=== PATIENT | male | born 1970 | race American Indian/Alaskan Native ===

== ENCOUNTER 2017-08-21 05:46 | Emergency (ER) | payer SELFPAY ==
[2017-08-21] MEDS ORDERED: CATAPRES ONE (07:00)
[2017-08-21] MEDS ORDERED: CATAPRES PO ONE ×2 (07:02→09:14)
[2017-08-21 07:57] LABS: Hematocrit 41.9 % (35.5-45.6); Hemoglobin 14.8 gm/dl (11.8-15.2); Mean Corpuscular HGB Conc 35 % (32-34); Mean Corpuscular Hemoglobin 30 pg (28-32); Mean Corpuscular Volume 84 fl (84-94); Platelet Count 193 K/mm3 (140-440); Red Blood Count 4.99 M/mm3 (3.65-5.03); Red Cell Distribution Width 12.9 % (13.2-15.2); White Blood Count 7.5 K/mm3 (4.5-11.0)
--- NOTE | 2017-08-21 08:01 | Cat Scan Report ---
FINAL REPORT PROCEDURE: CT HEAD/BRAIN WO CON TECHNIQUE: Computerized tomography of the head was performed without contrast material. HISTORY: Headache High Blood Pressure COMPARISON: No prior studies are available for comparison. FINDINGS: Skull and scalp: Normal. Paranasal sinuses: Normal. Ventricles and subarachnoid spaces: Normal. Cerebrum: No evidence of hemorrhage, acute infarction or mass . Cerebellum and brainstem: No evidence of hemorrhage, acute infarction or mass. Vasculature: Normal. Comments: None. IMPRESSION: Normal Examination
[2017-08-21 08:18] LABS: Creatine Kinase MB 4.7 ng/mL (0.0-4.0)
[2017-08-21 08:21] LABS: Alanine Aminotransferase 21 units/L (7-56); Albumin 3.8 g/dL (3.9-5); Alkaline Phosphatase 50 units/L (35-129); Anion Gap 16 mmol/L; BUN/Creatinine Ratio 10; Blood Urea Nitrogen 12 mg/dL (9-20); Calcium 9.1 mg/dL (8.4-10.2); Carbon Dioxide 24 mmol/L (22-30); Chloride 103.8 mmol/L (98-107); Creatine Kinase 151 units/L (55-170); Glucose 82 mg/dL (75-100); Sodium 140 mmol/L (137-145); Total Protein 7.5 g/dL (6.3-8.2)
[2017-08-21] MEDS ORDERED: TYLENOL PO ONE (09:14)
--- NOTE | 2017-08-21 09:19 | Emergency Department Report ---
ED Headache HPI - General Chief Complaint: High BP Stated Complaint: HBP Time Seen by Provider: 08/21/17 09:04 Source: patient - History of Present Illness Initial Comments: Patient is 47 his old male with no significant past medical history. He stated for the last week or so he started having headache, he went to a fire station, found that his blood pressure is really high. Patient denied any numbness, tingling sensation or weakness. No bowel or bladder incontinence. Patient denied any neck stiffness or fever. Patient stated that he never noted that he had blood pressure and he was never on any blood pressure medication before. Timing/Duration: 1 week Quality: moderate Head Injury Location: global Recent Head Trauma: no recent headache/trauma Allergies/Adverse Reactions: Allergies No Known Allergies Allergy (Unverified 10/18/13 11:12) ED Review of Systems ROS: Stated complaint: HBP Other details as noted in HPI Comment: All other systems reviewed and negative Constitutional: denies: chills, fever ENT: denies: ear pain, dental pain Respiratory: denies: cough, orthopnea, shortness of breath, SOB with exertion, SOB at rest, wheezing Cardiovascular: denies: chest pain, palpitations, dyspnea on exertion, orthopnea , syncope, paroxysmal nocturnal dyspnea Gastrointestinal: denies: abdominal pain, nausea, vomiting, diarrhea, constipation, hematemesis, melena, hematochezia Genitourinary: denies: urgency Skin: denies: rash, lesions, change in color, change in hair/nails Neurological: headache. denies: weakness, numbness, paresthesias, confusion, abnormal gait, vertigo ED Past Medical Hx - Past Medical History Previous Medical History?: Yes Hx Hypertension: Yes (not taking medications) - Social History Smoking Status: Never Smoker ED Physical Exam - General Limitations: No Limitations General appearance: alert, in no apparent distress - Head Head exam: Present: atraumatic, normocephalic, normal inspection - Eye Eye exam: Present: normal appearance, PERRL, EOMI Pupils: Present: normal accommodation - ENT ENT exam: Present: normal exam, normal orophraynx, mucous membranes moist - Neck Neck exam: Present: normal inspection, full ROM. Absent: tenderness, meningismus, lymphadenopathy, thyromegaly - Respiratory Respiratory exam: Present: normal lung sounds bilaterally. Absent: respiratory distress, wheezes, rales, rhonchi, stridor, chest wall tenderness, accessory muscle use, decreased breath sounds, prolonged expiratory - Cardiovascular Cardiovascular Exam: Present: regular rate, normal rhythm, normal heart sounds. Absent: bradycardia, tachycardia, irregular rhythm, systolic murmur, diastolic murmur, rubs, gallop - GI/Abdominal GI/Abdominal exam: Present: soft, normal bowel sounds. Absent: distended, tenderness, guarding, rebound, rigid, diminished bowel sounds, organomegaly, mass, bruit, pulsatile mass, hernia - Extremities Exam Extremities exam: Present: normal inspection, full ROM, normal capillary refill. Absent: tenderness, pedal edema, joint swelling, calf tenderness - Back Exam Back exam: Present: normal inspection, full ROM. Absent: tenderness, CVA tenderness (R), CVA tenderness (L), muscle spasm, paraspinal tenderness, vertebral tenderness, rash noted - Neurological Exam Neurological exam: Present: alert, oriented X3, CN II-XII intact, normal gait, reflexes normal. Absent: motor sensory deficit - Skin Skin exam: Present: warm, intact, normal color ED Course Vital Signs 08/21/17 08/21/17 08/21/17 06:48 07:04 07:50 Temperature 98.6 F Pulse Rate 87 87 79 Respiratory 20 Rate Blood Pressure 194/108 194/108 Blood Pressure 160/105 [Right] O2 Sat by Pulse 98 Oximetry ED Medical Decision Making - Lab Data Result diagrams: 08/21/17 07:44 08/21/17 07:44 - EKG Data -: EKG Interpreted by Ga EKG shows normal: sinus rhythm - EKG Data Interpretation: no acute changes - Radiology Data Radiology results: report reviewed Referring Physician: AZEB SMITH Patient Name: JULES FISHER Date of : 1970 Sex: Male Report Date: 2017-08-21 Report Status: [place] [address] Cat Scan Report Signed Patient: JULES FISHER JR MR#: [id number] : 1970 Acct:[id number] Age/Sex: 47 / M ADM Date: 08/21/17 Loc: ED Attending Dr: Ordering Physician: AZEB SMITH Date of Service: 08/21/17 Procedure(s): CT head/brain wo con Accession Number(s): [id number] cc: AZEB SMITH FINAL REPORT PROCEDURE: CT HEAD/BRAIN WO CON TECHNIQUE: Computerized tomography of the head was performed without contrast material. HISTORY: Headache High Blood Pressure COMPARISON: No prior studies are available for comparison. FINDINGS: Skull and scalp: Normal. Paranasal sinuses: Normal. Ventricles and subarachnoid spaces: Normal. Cerebrum: No evidence of hemorrhage, acute infarction or mass . Cerebellum and brainstem: No evidence of hemorrhage, acute infarction or mass. Vasculature: Normal. Comments: None. IMPRESSION: Normal Examination Transcribed By: CO Dictated By: DELLA REBOLLEDO MD Electronically Authenticated By: DELLA REBOLLEDO MD Signed Date/Time: 08/21/17357 DD/ 7 TD/TT: 08/21/17357 Critical care attestation.: If time is entered above; I have spent that time in minutes in the direct care of this critically ill patient, excluding procedure time. ED Disposition Clinical Impression: Headache, Malignant hypertension Disposition: DC-01 TO HOME OR SELFCARE Is pt being admited?: No Condition: Stable Instructions: Hypertension (ED) Additional Instructions: Please fill your prescription for high blood pressure. Please return to the ER if her symptoms is not getting better or you develop new symptoms. He saw her primary care physician in the next 2-3 days. Referrals: PRIMARY CAREMD [Primary Care Provider] - 3-5 Days
[2017-08-21 10:23] VITALS: BP 164/108
== END 2017-08-21 10:42 | disposition home or self-care (01) ==
LOC: ED 05:46
DX: I10 Essential (primary) hypertension (principal); R51 Headache
CPT/HCPCS: 36415; 70450; 80053; 82550; 82553; 84484; 85027; 93005; 93010; 99284

== ENCOUNTER 2017-08-24 02:35 | Emergency (ER) | payer SELFPAY | END 2017-08-24 02:59 | disposition left against medical advice (07) | LOC: ED 02:35 | DX: Z53.21 Procedure and treatment not carried out due to patient leaving prior to being seen by health care provider (principal) ==

== ENCOUNTER 2018-05-02 20:10 | Emergency (ER) | payer SELFPAY ==
[2018-05-02 20:53] VITALS: BP 183/115
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
[2018-05-02] MEDS ORDERED: BOOSTRIX IM ONE (23:08)
[2018-05-02] MEDS ORDERED: AUGMENTIN 875 MG PO ONE (23:08)
== END 2018-05-02 23:40 | disposition home or self-care (01) ==
LOC: ED 20:10
DX: H10.31 Unspecified acute conjunctivitis, right eye (principal); I10 Essential (primary) hypertension
CPT/HCPCS: 70486; 90471; 90715; 99283

== ENCOUNTER 2019-03-14 10:11 | Inpatient (IN) | payer SELFPAY ==
[2019-03-14] MEDS ORDERED: APRESOLINE IV ONE (10:46)
--- NOTE | 2019-03-14 10:50 | XRay Report ---
PA AND LATERAL CXR HISTORY: Dyspnea COMPARISON: None. FINDINGS: Cardiomediastinal silhouette: Normal cardiac size. Normal mediastinal contours. Lungs: Normal expansion. Mild right perihilar patchy opacities on the frontal view and right hilar f ullness on the lateral view. The lungs are otherwise clear. No pleural effusions. No pneumothorax. Pulmonary vascularity: Normal. Support hardware: None. Additional findings: None. IMPRESSION: 1. Suspect mild right perihilar pneumonia without consolidation. Signer Name: Luis Armando Aguilera MD Signed: 03/14/2019 10:46 AM Workstation Name: [id number]
--- NOTE | 2019-03-14 11:11 | Emergency Department Report ---
HPI - General Chief Complaint: Dyspnea/Respdistress Time Seen by Provider: 03/14/19 10:37 - HPI HPI: 48-year-old -[place] male presents to the emergency department from home with a complaint of a 2-3 day history of some intermittent shortness of breath and chest pain. Then, this morning, while the patient was trying to have a bowel movement he became very diaphoretic and had some nausea and vomiting. He has not taken anything for his symptoms prior to presentation. He denies any tobacco use. He does admit to some occasional marijuana use. He does have a history of hypertension and admits to medication noncompliance due to financial issues. No recent travel or sick contacts at home. He does not have a primary care physician. ED Past Medical Hx - Past Medical History Previous Medical History?: Yes Hx Hypertension: Yes (not taking medications) - Surgical History Past Surgical History?: No - Social History Smoking Status: Never Smoker Substance Use Type: Alcohol - Medications Home Medications: Home Medications Medication Instructions Recorded Confirmed Last Taken Type No Known Home Medications [No 03/14/19 03/14/19 Unknown History Reported Home Medications] ED Review of Systems ROS: Stated complaint: SHORTNESS OF BREATH Other details as noted in HPI Comment: All other systems reviewed and negative Constitutional: diaphoresis. denies: chills, fever Eyes: denies: eye pain, vision change ENT: denies: ear pain, throat pain Respiratory: shortness of breath. denies: cough Cardiovascular: chest pain. denies: palpitations Gastrointestinal: nausea, vomiting Genitourinary: denies: dysuria, discharge Musculoskeletal: denies: back pain, arthralgia Skin: denies: rash, lesions Neurological: denies: headache, weakness Physical Exam - Physical Exam Vital Signs: Vital Signs 03/14/19 03/14/19 03/14/19 10:19 10:56 10:57 Temperature 98.2 F 98.6 F Pulse Rate 83 84 Respiratory 18 26 H 23 Rate Blood Pressure 196/128 Blood Pressure 194/121 [Left] O2 Sat by Pulse 95 98 98 Oximetry Physical Exam: GENERAL: The patient is well-developed well-nourished. HENT: Normocephalic. Atraumatic. Patient has moist mucous membranes. EYES: Extraocular motions are intact. NECK: Supple. Trachea is midline. CHEST/LUNGS: Clear to auscultation. There is no respiratory distress noted. HEART/CARDIOVASCULAR: Regular. There is no tachycardia. There is no murmur. ABDOMEN: Abdomen is soft, nontender. Patient has normal bowel sounds. There is no abdominal distention. SKIN: Skin is warm and dry. NEURO: The patient is awake, alert, and oriented. The patient is cooperative. The patient has no focal neurologic deficits. The patient has normal speech. MUSCULOSKELETAL: There is no tenderness or deformity. There is no limitation range of motion. There is no evidence of acute injury. ED Course Vital Signs 03/14/19 03/14/19 03/14/19 10:19 10:56 10:57 Temperature 98.2 F 98.6 F Pulse Rate 83 84 Respiratory 18 26 H 23 Rate Blood Pressure 196/128 Blood Pressure 194/121 [Left] O2 Sat by Pulse 95 98 98 Oximetry - Consultations Consultation #1: 03/14/19 13:31 As soon as I got the EKG, I spoke with the gauger chief delivery on-call, Dr. Denton, as the EKG showed some ST elevations, ST depressions and deep T-wave inversions. 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 They are happy to consult on the patient. ED Medical Decision Making - Lab Data Result diagrams: 03/14/19 11:04 03/14/19 11:04 - EKG Data -: EKG Interpreted by Me EKG shows normal: sinus rhythm, axis, intervals, QRS complexes (LVH), ST-T waves (inverted T waves to the inferior and lateral leads, there are some ST elevations to the septal leads and some ST depressions to the inferior and lateral leads) Rate: normal - EKG Data When compared to previous EKG there are: previous EKG unavailable Interpretation: other (sinus rhythm, 81 bpm, normal axis, LVH, there are some ST elevations to the septal leads and ST depressions to the inferior and lateral leads, T-wave inversions to the inferior and lateral leads. Discussed with cardiology and not a STEMI) - Radiology Data Radiology results: report reviewed PA AND LATERAL CXR HISTORY: Dyspnea COMPARISON: None. FINDINGS: Cardiomediastinal silhouette: Normal cardiac size. Normal mediastinal contours. Lungs: Normal expansion. Mild right perihilar patchy opacities on the frontal view and right hilar fullness on the lateral view. The lungs are otherwise clear. No pleural effusions. No pneumothorax. Pulmonary vascularity: Normal. Support hardware: None. Additional findings: None. IMPRESSION: 1. Suspect mild right perihilar pneumonia without consolidation. Signer Name: Luis Armando Aguilera MD Signed: 03/14/2019 10:46 AM - Medical Decision Making This patient presents to the emergency department with complaint of intermittent chest pain and shortness of breath and more recently some nausea and vomiting. His EKG was concerning as it showed some ST elevation to the anterior leads with ST depressions in the inferior lateral as well as some deep T-wave inversions. It appeared most consistent with LVH and repolarization abnormalities, but given the presentation was discussed with interventional cardiology who agrees that it does not require a code STEMI. Patient's labs have been mostly unremarkable including negative troponin and negative d-dimer. However the patient did have an elevated BNP of about 1500. The chest x-ray was read by radiology is concerned for a mild right perihilar infiltrate. For this reason the patient was placed on antibiotics and blood cultures have been sent. He does not have a fever, leukocytosis or cough but he will be empirically treated. Cardiology has been contacted and consulted. The patient will be admitted to the hospital for further evaluation of his hypertensive issues, intermittent chest pains and abnormal EKG. - Differential Diagnosis IA, PE, CHF, hypertensive emergency, pneumonia Critical Care Time: Yes Critical care time in (mins) excluding proc time.: 35 Critical care attestation.: If time is entered above; I have spent that time in minutes in the direct care of this critically ill patient, excluding procedure time. Critical care time was spent on this patient during his initial evaluation, multiple re- evaluations, ordering and interpretation of labs and imaging, interpretation of EKG and discussion with cardiology, ordering of multiple antihypertensive medications for his hypertensive urgency. Critical Care Time: 35 minutes ED Disposition Clinical Impression: Uncontrolled hypertension, Elevated troponin, Acute chest pain, Hypertensive urgency, Abnormal ECG Disposition: OP ADMIT IP TO THIS HOSP Is pt being admited?: Yes Condition: Fair Instructions: Hypertension (ED), Chest Pain (ED) Referrals: PRIMARY CARE, [Referring] - 3-5 Days Time of Disposition: 13:37
[2019-03-14 11:13] LABS: Basophils % (Auto) 0.5 % (0.0-1.8); Eosinophils # (Auto) 0.1 K/mm3 (0.0-0.4); Eosinophils % (Auto) 1.7 % (0.0-4.3); Hematocrit 40.9 % (35.5-45.6); Hemoglobin 14.4 gm/dl (11.8-15.2); Lymphocytes # (Auto) 1.1 K/mm3 (1.2-5.4); Lymphocytes % (Auto) 14.1 % (13.4-35.0); Mean Corpuscular HGB Conc 35 % (32-34); Mean Corpuscular Volume 82 fl (84-94); Monocytes # (Auto) 0.6 K/mm3 (0.0-0.8); Monocytes % (Auto) 8.2 % (0.0-7.3); Platelet Count 222 K/mm3 (140-440); Red Blood Count 4.97 M/mm3 (3.65-5.03); Red Cell Distribution Width 13.4 % (13.2-15.2)
[2019-03-14] MEDS ORDERED: BABY ASPIRIN PO ONE (11:19)
[2019-03-14 11:41] LABS: BUN/Creatinine Ratio 8; Blood Urea Nitrogen 9 mg/dL (9-20); Calcium 9.3 mg/dL (8.4-10.2)
[2019-03-14 11:42] LABS: Hemolysis Index 4
[2019-03-14] MEDS ORDERED: NORMODYNE IV ONE (11:45)
[2019-03-14] MEDS ORDERED: ROCEPHIN/NS 1 GM/50 ML 1 GM/50 ML BAG IV ONE (11:45)
[2019-03-14] MEDS ORDERED: LASIX IV ONE (12:11)
[2019-03-14] MEDS ORDERED: NORVASC PO ONE ×2 (12:12→12:15)
[2019-03-14] MEDS ORDERED: NORVASC ONE (12:21)
[2019-03-14] MEDS ORDERED: ZITHROMAX 500 MG in NACL 0.9% 250ML 250 ML IV ONE (12:30)
--- NOTE | 2019-03-14 12:58 | Consultation ---
History of Present Illness Consult date: 03/14/19 Requesting physician: JAMIE MCNEIL Consult reason: chest pain, shortness of breath, other (abnormal ecg) History of present illness: The pt is a 48-year-old -[place] male with past medical history of HTN and ETOH use (drinks 48oz beer every other day). He does not have a PCP, he admits to medication noncompliance due to financial issues. He presented with c/o dyspnea on exertion and intermittent chest pain for the past 3 days. Pt describes his chest pain as a nonradiating midsternal tightness which usually o ccurs after he becomes severely SOB. Additionally, pt was trying to have a bowel movement this morning when he became very diaphoretic and had some nausea and vomiting and thus decided to seek medical attention. Pt denies any orthopnea, cough, fever, chills, swelling, palpitations, dizziness or syncope. Pt denies any known prior cardiac issues. He denies any prior cardiac w/u. Initial ECG is noted to be markedly abnormal with LVH and repolarization abnormalities. Past History Past Medical History: hypertension Social history: alcohol abuse. denies: smoking, prescription drug abuse, IV drug use Medications and Allergies Allergies Allergy/AdvReac Type Severity Reaction Status Date / Time No Known Allergies Allergy Verified 03/14/19 10: Home Medications Medication Instructions Recorded Confirmed Last Taken Type No Known Home Medications [No 03/14/19 03/14/19 Unknown History Reported Home Medications] Active Meds: Active Medications Azithromycin 500 mg/ Sodium (Chloride) 250 mls @ 250 mls/hr IV ONCE ONE; Protocol Stop: 03/14/19 13:29 Last Admin: 03/14/19 12:24 Dose: 250 mls/hr Documented by: Review of Systems Constitutional: no weight loss, no weight gain, no fever, no chills Ears, nose, mouth and throat: no ear pain, no nose pain, no sinus pressure, no sinus pain Cardiovascular: chest pain, shortness of breath, dyspnea on exertion, no orthopnea, no palpitations, no rapid/irregular heart beat, no edema, no syncope, no lightheadedness, no paroxysmal nocturnal dyspnea Respiratory: shortness of breath, dyspnea on exertion, no cough, no congestion, no wheezing, no pain on inspiration Gastrointestinal: nausea, vomiting, no abdominal pain, no diarrhea, no constipation, no change in bowel habits Genitourinary Male: no dysuria, no hematuria, no flank pain, no discharge, no urinary frequency, no urinary hesitancy Musculoskeletal: no neck stiffness, no neck pain, no shooting arm pain, no arm numbness/tingling, no low back pain, no shooting leg pain Integumentary: no rash, no pruritis, no redness, no sores, no wounds Neurological: no head injury, no paralysis, no weakness, no parathesias, no numbness, no tingling, no seizures, no syncope Psychiatric: no anxiety Endocrine: no cold intolerance, no heat intolerance Hematologic/Lymphatic: no easy bruising, no easy bleeding Allergic/Immunologic: no urticaria, no wheezing Physical Examination Vital Signs Temp Pulse Resp BP Pulse Ox 98.2 F 83 18 196/128 95 03/14/19 10:19 03/14/19 10:19 03/14/19 10:19 03/14/19 10:03/14/19 10:19 General appearance: no acute distress HEENT: Positive: PERRL Neck: Positive: neck supple, trachea midline Cardiac: Positive: Reg Rate and Rhythm, S1/S2, S4 Lungs: Positive: Decreased Breath Sounds Neuro: Positive: Grossly Intact Abdomen: Negative: Tender Skin: Negative: Rash, Wound Musculoskeletal: No Pain Extremities: Absent: edema Results 03/14/19 11:04 03/14/19 11:04 CBC 03/14/19 Range/Units 11:04 WBC 7.7 (4.5-11.0) K/mm3 RBC 4.97 (3.65-5.03) M/mm3 Hgb 14.4 (11.8-15.2) gm/dl Hct 40.9 (35.5-45.6) % Plt Count 222 (140-440) K/mm3 Lymph # 1.1 L (1.2-5.4) K/mm3 [place] # 0.6 (0.0-0.8) K/mm3 Eos # 0.1 (0.0-0.4) K/mm3 Baso # 0.0 (0.0-0.1) K/mm3 Comprehensive Metabolic Panel 03/14/19 Range/Units 11:04 Sodium 141 (137-145) mmol/L Potassium 4.7 (3.6-5.0) mmol/L Chloride 104.8 (98-107) mmol/L Carbon Dioxide 29 (22-30) mmol/L BUN 9 (9-20) mg/dL Creatinine 1.2 (0.8-1.5) mg/dL Glucose 102 H (75-100) mg/dL Calcium 9.3 (8.4-10.2) mg/dL - Imaging and Cardiology Echo: pending EKG: report reviewed, image reviewed EKG interpretations - Telemetry EKG Rhythm: Sinus Rhythm - EKG Sinus rhythms and dysrhythmias: sinus rhythm Chamber hypertrophy or enlargement: left ventricular hypertro Repolarization changes or abnormalities: repolarization abn secondary to ventricular hypertrophy Assessment and Plan Optimize BPs. Cont IV diuretics. Initial troponin very minimally elevated, likely secondary to HTN. Cont to trend SHAW and repeat ECG in AM. Obtain echo. Further recs to follow per hospital course. The patient has been seen in conjunction with Dr. Aguiar who agrees with the assessment and plan of care. - Patient Problems (1) Uncontrolled hypertension Current Visit: Yes Status: Acute (2) Chest pain Current Visit: Yes Status: Acute (3) Dyspnea Current Visit: Yes Status: Acute (4) Acute heart failure Current Visit: Yes Status: Suspected (5) Abnormal ECG Current Visit: Yes Status: Acute (6) Alcohol use Current Visit: Yes Status: Chronic
[2019-03-14] MEDS ORDERED: COREG PO SCH ×2 (13:23→22:00)
[2019-03-14] MEDS: COREG PO SCH ×2 (14:21→22:36)
[2019-03-14] MEDS ORDERED: COREG ONE (14:23)
--- NOTE | 2019-03-14 14:50 | History and Physical Report ---
History of Present Illness Chief complaint: Im short of breath History of present illness: 48 YO Male with HTN, Medication noncompliance for the past 3 months presents to ED for evaluation. Pt states that he has experienced shortness of breath over the past 3 days with persistent symptoms over the same time frame. Pt acknowledges decreased exercise tolerance, diaphoresis, as well as nausea and an episode of vomiting. Pt transported to [facility] via private vehicle. Pt seen and evaluated in ED and found to have blood pressure of 212/128, and elevated BNP, as well as symptoms consistent with CHF Decompensation. Cardiology consulted in ED. Pt admitted to telemetry, and initiated on CHF protocol. No prior admission for review. No medication listed at time of admission for reconciliation. Pt denies fever, chills, CP, Palpitations, Trauma, Skin Rash, BRBPR, Productive cough, unilateral leg swelling, calf pain, prolonged travel/immobility, Individual/family history of DVT/PE/Bleeding/Blood Clotting Disorders. Past History Past Medical History: hypertension Past Surgical History: No surgical history, Other (reviewed) Social history: alcohol abuse. denies: smoking, prescription drug abuse, IV drug use Family history: hypertension Medications and Allergies Allergies Allergy/AdvReac Type Severity Reaction Status Date / Time No Known Allergies Allergy Verified 03/14/19 10:19 Home Medications Medication Instructions Recorded Confirmed Last Taken Type No Known Home Medications [No 03/14/19 03/14/19 Unknown History Reported Home Medications] Active Meds: Active Medications Carvedilol (Coreg) 12.5 mg PO BID [facility] Last Admin: 03/14/19 14:21 Dose: 12.5 mg Documented by: Furosemide (Lasix) 40 mg IV DAILY@0600 [facility] Losartan Potassium (Cozaar) 25 mg PO DAILY [facility] Review of Systems Constitutional: no weight loss, no weight gain, no fever, no chills Ears, nose, mouth and throat: no ear pain, no ear discharge, no tinnitis, no decreased hearing, no nose pain Cardiovascular: shortness of breath, dyspnea on exertion, decreased exercise tolerance, no chest pain, no palpitations, no rapid/irregular heart beat Respiratory: no cough, no cough with sputum, no excessive sputum Gastrointestinal: nausea, vomiting, no diarrhea, no constipation, no change in bowel habits Genitourinary Male: no hematuria, no flank pain, no discharge, no urinary frequency, no urinary hesitancy Rectal: no pain, no incontinence, no bleeding Musculoskeletal: no neck stiffness, no neck pain, no shooting arm pain, no arm numbness/tingling, no low back pain, no shooting leg pain Integumentary: no rash, no pruritis, no redness, no wounds Neurological: no transient paralysis, no paralysis, no weakness, no parathesias, no numbness, no tingling, no lack of coordination Psychiatric: no anxiety, no change in sleep habits, no sleep disturbances, no insomnia, no change in appetite, no change in libido Endocrine: no cold intolerance, no heat intolerance, no polyphagia, no excessive thirst, no polydipsia, no polyuria, no excessive sweating, no flushing Hematologic/Lymphatic: no easy bruising, no easy bleeding, no lymphedema Allergic/Immunologic: no urticaria, no allergic rhinitis, no wheezing, no persistent infections Exam - Constitutional Vitals: Temp Pulse Resp BP Pulse Ox 98.6 F 99 H 15 187/113 99 03/14/19 10:56 03/14/19 14:21 03/14/19 14:00 03/14/19 14:00 03/14/19 14:00 General appearance: Present: mild distress - EENT Eyes: Present: PERRL ENT: hearing intact, clear oral mucosa - Neck Neck: Present: supple, normal ROM - Respiratory Respiratory effort: normal Respiratory: bilateral: CTA - Cardiovascular Heart Sounds: Present: S1 & S2. Absent: rub, click - Extremities Extremities: pulses symmetrical, No edema Peripheral Pulses: within normal limits - Abdominal General gastrointestinal: Present: soft, non-tender, non-distended, normal bowel sounds Male genitourinary: Present: normal - Integumentary Integumentary: Present: clear, warm, dry - Musculoskeletal Musculoskeletal: gait normal, strength equal bilaterally - Psychiatric Psychiatric: appropriate mood/affect, intact judgment & insight - Neurologic Neurologic: CNII-XII intact, moves all extremities Results - Labs CBC & Chem 7: 03/14/19 11:04 03/14/19 11:04 Labs: Abnormal lab results 03/14/19 03/14/19 03/14/19 Range/Units 11:04 11:04 11:04 MCV 82 L (84-94) fl MCHC 35 H (32-34) % [place] % (Auto) 8.2 H (0.0-7.3) % Lymph # 1.1 L (1.2-5.4) K/mm3 Seg Neutrophils % 75.5 H (40.0-70.0) % Glucose 102 H (75-100) mg/dL NT-Pro-B Natriuret Pep 1564 H (0-450) pg/mL Assessment and Plan - Patient Problems (1) CHF (congestive heart failure) Current Visit: Yes Status: Acute Qualifiers: Heart failure type: diastolic Heart failure chronicity: acute Qualified Code(s): I50.31 - Acute diastolic (congestive) heart failure Plan to address problem: Admit to telemetry, Echo, Cardiology consulted in ED, thyroid panel, magnesium level, supplemental oxygen, afterload reduction, blood pressure control, diuresis. (2) Hypertensive urgency, malignant Current Visit: Yes Status: Acute Plan to address problem: monitor BP q shift, IV hydralazine prn, (3) Noncompliance Current Visit: Yes Status: Acute Plan to address problem: Pt counseled, Pt acknowledges understanding risks of worsening health/ if continued medication noncompliance. (4) Advance care planning Current Visit: Yes Status: Acute Plan to address problem: Discussed medication noncompliance, meal planning, +25min (5) DVT prophylaxis Current Visit: Yes Status: Acute Plan to address problem: SCD to BLE while in bed, pt ambulatory
[2019-03-14 18:29] LABS: Amphetamine Screen,Urine PRESUMPTIVE NEGATIVE; Benzodiazepines Screen,Urine PRESUMPTIVE NEGATIVE; Cocaine Screen,Urine PRESUMPTIVE NEGATIVE; Methadone Screen,Urine PRESUMPTIVE NEGATIVE; Opiate Screen,Urine PRESUMPTIVE NEGATIVE
[2019-03-14 18:41] LABS: Cannabinoid Screen,Urine PRESUMPTIVE POSITIVE
[2019-03-14] MEDS ORDERED: PROVENTIL IH PRN (20:58)
[2019-03-14] MEDS ORDERED: ZOFRAN IV PRN (20:58)
[2019-03-14] MEDS ORDERED: SODIUM CHLORIDE FLUSH SYRINGE 10 ML IV PRN (20:58)
[2019-03-14] MEDS: SODIUM CHLORIDE FLUSH SYRINGE 10 ML IV SCH (22:37)
[2019-03-15 04:57] LABS: BUN/Creatinine Ratio 12; Blood Urea Nitrogen 14 mg/dL (9-20); HDL Cholesterol 57 mg/dL (40-59); Hemolysis Index 15; LDL Cholesterol,Direct 93 mg/dL (50-130)
[2019-03-15] MEDS: APRESOLINE IV PRN ×3 (05:41→20:23)
[2019-03-15] MEDS: LASIX IV SCH (05:41)
[2019-03-15] MEDS: COZAAR PO SCH (10:34)
[2019-03-15] MEDS: COREG PO SCH ×2 (10:34→22:58)
[2019-03-15] MEDS: NORVASC PO SCH (10:35)
[2019-03-15] MEDS: SODIUM CHLORIDE FLUSH SYRINGE 10 ML IV SCH ×2 (10:35→22:59)
[2019-03-15] MEDS: TYLENOL PO PRN ×2 (10:38→20:21)
--- NOTE | 2019-03-15 15:23 | Progress Note ---
Assessment and Plan Echo reviewed - EF 45-50%, mod LVH, impaired relaxation, trivial pericardial effusion. Currently stable cardiac status. Pt appears clinically improved and reports resolution of his symptoms today. Troponins were noted to be minimally elevated, suspect secondary to uncontrolled HTN. Pt may discharge home from cardiology standpoint. Will plan for stress test as OP as pt is requesting to discharge home today. Recommend follow up in our office with Dr. Aguiar within 1-2 weeks of hospital discharge ([phone]). The patient has been seen in conjunction with Dr. Aguiar who agrees with the assessment and plan of care. - Patient Problems (1) Uncontrolled hypertension Current Visit: Yes Status: Acute (2) Chest pain Current Visit: Yes Status: Resolved (3) Dyspnea Current Visit: Yes Status: Acute (4) Abnormal ECG Current Visit: Yes Status: Acute (5) Elevated troponin Current Visit: Yes Status: Acute (6) Alcohol use Current Visit: Yes Status: Chronic Subjective Date of service: 03/15/19 Principal diagnosis: HTN Interval history: pt resting in bed, no current complaints. in SR on tele with no acute events overnight. Objective Last Vital Signs Temp 98.0 F 03/15/19 04:29 Pulse 85 03/15/19 10:35 Resp 18 03/15/19 04:29 BP 158/112 03/15/19 10:35 Pulse Ox 100 03/15/19 07:42 - Physical Examination General: No Apparent Distress HEENT: Positive: PERRL Neck: Positive: neck supple, trachea midline Cardiac: Positive: Reg Rate and Rhythm, S1/S2 Lungs: Positive: Decreased Breath Sounds Neuro: Positive: Grossly Intact Abdomen: Negative: Tender Skin: Negative: Rash, Wound Musculoskeletal: No Pain Extremities: Absent: edema - Labs and Meds Lipids 03/15/19 Range/Units 03:48 Triglycerides 131 (2-149) mg/dL Cholesterol 160 (50-199) mg/dL HDL Cholesterol 57 (40-59) mg/dL Cholesterol/HDL Ratio 2.80 % Comprehensive Metabolic Panel 03/15/19 Range/Units 03:48 Sodium 139 (137-145) mmol/L Potassium 3.8 (3.6-5.0) mmol/L Chloride 101.8 (98-107) mmol/L Carbon Dioxide 26 (22-30) mmol/L BUN 14 (9-20) mg/dL Creatinine 1.2 (0.8-1.5) mg/dL Glucose 98 (75-100) mg/dL Calcium 9.0 (8.4-10.2) mg/dL - Imaging and Cardiology EKG: report reviewed, image reviewed Echo: pending - EKG Sinus rhythms and dysrhythmias: sinus rhythm Chamber hypertrophy or enlargement: left ventricular hypertro Repolarization changes or abnormalities: repolarization abn secondary to ventricular hypertrophy
--- NOTE | 2019-03-15 15:27 | Progress Note ---
Assessment and Plan (1) CHF (congestive heart failure) with systolic and diastolic Cardiology consulted in ED, thyroid panel, magnesium level, supplemental oxygen, afterload reduction, blood pressure control, diuresis. (2) Hypertensive urgency, malignant monitor BP q shift, adjust oral meds, IV hydralazine prn, (3) Noncompliance Pt counseled, Pt acknowledges understanding risks of worsening health/ if continued medication noncompliance. (4) Chest pain with elevated trop - NSTEMI type 2 likely from uncontrolled BP and CHF cardiology following, plan for stress test tomorrow (5) DVT prophylaxis SCD to BLE while in bed, pt ambulatory Brief History: The pt is a 48-year-old -[place] male with past medical history of HTN and ETOH use (drinks 48oz beer every other day), anddhe oes not have a PCP, he admits to medication noncompliance due to financial issues presented with c/o dyspnea on exertion and intermittent chest pain for the past 3 days. Initial ECG is noted to be markedly abnormal with LVH and repolarization abnormalities. He he was admitted for further ablation and management. His blood pressure on admission was 196 / 128 Hospitalist Physical exam: GENERAL: well-developed and well-nourished AAM lying on bed appeared to be in no discomfort. HEENT: Normocephalic. Atraumatic. No conjunctival congestion or icterus. Patient has moist mucous membranes. NECK: Supple. Trachea midline. CHEST/LUNGS: Clear to auscultated bilaterally, breathing nonlabored. No wheezes crackles or rhonchi. HEART/CARDIOVASCULAR: Regular in rate and rhythm. S1 and S2 positive. ABDOMEN: Abdomen is soft, nontender. Patient has normal bowel sounds. SKIN: There is no rash. Warm and dry. NEURO: No focal motor deficit. Follows command. MUSCULOSKELETAL: No joint effusion or tenderness. EXTRIMITY: No edema, no cyanosis or clubbing. PSYCH: Cooperative. Subjective Date of service: 03/15/19 Principal diagnosis: HTN Interval history: Patient seen and examined. Medical records and medication list reviewed. No acute event overnight noted by the RN. Patient denies any chest pain or difficulty breathing. Patient is tolerating diet. Discussed plan of care at bedside with patient. Objective - Constitutional Vitals: Vital Signs - 12hr 03/15/19 03/15/19 03/15/19 04:29 05:41 07:00 Temperature 98.0 F Pulse Rate 81 90 90 Respiratory 18 Rate Blood Pressure 161/100 161/100 O2 Sat by Pulse 96 Oximetry 03/15/19 03/15/19 03/15/19 07:42 10:34 10:35 Temperature Pulse Rate 85 85 Respiratory Rate Blood Pressure 158/112 158/112 O2 Sat by Pulse 100 Oximetry - Labs CBC & Chem 7: 03/14/19 11:04 03/15/19 03:48 Labs: Abnormal lab results 03/15/19 Range/Units 03:48 Troponin T 0.062 H D (0.00-0.029) ng/mL
[2019-03-15] MEDS ORDERED: NORCO 5/325 PO PRN (21:22)
[2019-03-16] MEDS: LASIX IV SCH (06:32)
[2019-03-16] MEDS: SODIUM CHLORIDE FLUSH SYRINGE 10 ML IV SCH (10:30)
[2019-03-16] MEDS: COZAAR PO SCH (10:30)
[2019-03-16] MEDS: NORVASC PO SCH (10:30)
[2019-03-16] MEDS: COREG PO SCH (10:30)
--- NOTE | 2019-03-16 11:14 | Progress Note ---
Assessment and Plan Echo reviewed - EF 45-50%, mod LVH, impaired relaxation, trivial pericardial effusion. Currently stable cardiac status. Pt may discharge home from cardiology standpoint. Will plan for stress test as OP. Recommend follow up in our office with Dr. Aguiar within 1-2 weeks of hospital discharge ([phone]). The patient has been seen in conjunction with Dr. Aguiar who agrees with the assessment and plan of care. - Patient Problems (1) Uncontrolled hypertension Current Visit: Yes Status: Acute (2) Chest pain Current Visit: Yes Status: Resolved (3) Dyspnea Current Visit: Yes Status: Acute (4) Abnormal ECG Current Visit: Yes Status: Acute (5) Elevated troponin Current Visit: Yes Status: Acute (6) Alcohol use Current Visit: Yes Status: Chronic Subjective Date of service: 03/16/19 Principal diagnosis: HTN Interval history: pt resting in bed, no current complaints. in SR on tele with no acute events overnight. BPs improved. Objective Last Vital Signs Temp 98.2 F 03/16/19 08:13 Pulse 80 03/16/19 03:51 Resp 18 03/16/19 08:13 BP 146/98 03/16/19 08:13 Pulse Ox 94 03/16/19 03:51 - Physical Examination General: No Apparent Distress HEENT: Positive: PERRL Neck: Positive: neck supple, trachea midline Cardiac: Positive: Reg Rate and Rhythm, S1/S2 Lungs: Positive: Decreased Breath Sounds Neuro: Positive: Grossly Intact Abdomen: Negative: Tender Skin: Negative: Rash, Wound Musculoskeletal: No Pain Extremities: Absent: edema - Imaging and Cardiology EKG: report reviewed, image reviewed Echo: report reviewed ( EF 45-50%, mod LVH, impaired relaxation, trivial pericardial effusion. ) - Telemetry EKG Rhythm: Sinus Rhythm - EKG Sinus rhythms and dysrhythmias: sinus rhythm Chamber hypertrophy or enlargement: left ventricular hypertro Repolarization changes or abnormalities: repolarization abn secondary to ventricular hypertrophy
[2019-03-16 12:30] VITALS: BP 150/89
--- NOTE | 2019-03-16 12:56 | Discharge Summary ---
Providers - Providers Date of Admission: 03/14/19 20:58 Date of discharge: 03/16/19 Attending physician: JAMSHID PENNY 03/14/19 11:46 Consult to Cardiology [CONS] Routine Consulting Provider: DAVY BRAVO Reason For Exam: Chest pain, abnormal ECG [facility] Condition: Fair Pertinent studies: CXR 2d echo Hospital course: Brief History: The pt is a 48-year-old -[place] male with past medical history of HTN and ETOH use (drinks 48oz beer every other day), anddhe oes not have a PCP, he admits to medication noncompliance due to financial issues presented with c/o dyspnea on exertion and intermittent chest pain for the past 3 days. Initial ECG is noted to be markedly abnormal with LVH and repolarization abnormalities. He was admitted for further ablation and management. His blood pressure on admission was 196 / 128. Discharge diagnosis and management: (1) CHF (congestive heart failure) with systolic and diastolic dysfunction - Placed on iv diuresis, monitored ins/os, daily wt, consulted cardiology - Echo reviewed - EF 45-50%, mod LVH, impaired relaxation, trivial pericardial effusion. Per cardiology: Currently stable cardiac status. Pt may discharge home from cardiology standpoint. Will plan for stress test as OP. Recommend follow up with Dr. Aguiar within 1-2 weeks of hospital discharge ([phone]). (2) Hypertensive urgency, malignant monitored BP q shift, adjust oral meds, IV hydralazine prn, (3) Noncompliance Pt counseled, Pt acknowledges understanding risks of worsening health/ if continued medication noncompliance. (4) Chest pain with elevated troponin likely from uncontrolled BP and CHF, plan for stress test outpt (5) DVT prophylaxis SCD to BLE while in bed, pt ambulatory Hospitalist Physical exam: GENERAL: well-developed and well-nourished AAM lying on bed appeared to be in no discomfort. HEENT: Normocephalic. Atraumatic. No conjunctival congestion or icterus. Patient has moist mucous membranes. NECK: Supple. Trachea midline. CHEST/LUNGS: Clear to auscultated bilaterally, breathing nonlabored. No wheezes crackles or rhonchi. HEART/CARDIOVASCULAR: Regular in rate and rhythm. S1 and S2 positive. ABDOMEN: Abdomen is soft, nontender. Patient has normal bowel sounds. SKIN: There is no rash. Warm and dry. NEURO: No focal motor deficit. Follows command. MUSCULOSKELETAL: No joint effusion or tenderness. EXTRIMITY: No edema, no cyanosis or clubbing. PSYCH: Cooperative. Disposition: DC-01 TO HOME OR SELFCARE Time spent for discharge: 34 minutes Core Measure Documentation - Palliative Care Palliative Care/ Comfort Measures: Not Applicable - Core Measures Any of the following diagnoses?: heart failure - Heart Failure Discharge Requirements GIRMA/ARB for LVSD if EF <40%: Yes Beta maris at discharge: Yes Exam - Constitutional Vitals: Temp Pulse Resp BP Pulse Ox 98.2 F 84 18 150/89 94 03/16/19 08:13 03/16/19 12:01 03/16/19 12:01 03/16/19 12:01 03/16/19 12:01 Plan Activity: advance as tolerated Weight Bearing Status: Non-Weight Bearing Diet: low fat, low salt Follow up with: PRIMARY CARE, [Referring] - 3-5 Days Forms: Work/School Release Form Prescriptions: AtorvaSTATin [Lipitor] 40 mg PO QHS #30 tab Carvedilol [Coreg] 12.5 mg PO BID #60 tablet Losartan [Cozaar] 25 mg PO DAILY #30 tablet Aspirin EC [Halfprin EC] 81 mg PO QDAY #30 tablet. amLODIPine [Norvasc] 10 mg PO QDAY #30 tablet
== END 2019-03-16 15:30 | disposition home or self-care (01) | DRG 280 ==
LOC: ED 10:11 → 4A 20:58
PROVIDERS: ADMIT Internal Medicine; ATTEND Internal Medicine
DX: I21.A1 Myocardial infarction type 2 (principal); I50.43 Acute on chronic combined systolic (congestive) and diastolic (congestive) heart failure; I16.0 Hypertensive urgency; Z91.19 Patient's noncompliance with other medical treatment and regimen; F12.90 Cannabis use, unspecified, uncomplicated; F10.10 Alcohol abuse, uncomplicated; Y90.9 Presence of alcohol in blood, level not specified; I11.0 Hypertensive heart disease with heart failure; Z82.49 Family history of ischemic heart disease and other diseases of the circulatory system
CPT/HCPCS: 36415; 71046; 80048; 80061; 80307; 83880; 84484; 85025; 85379; 87040; 93005; 93010; 93306; 96365; 96375; 99291; G0378; J0360; J0456; J0696; J1940; J7050

== ENCOUNTER 2020-03-24 19:19 | Emergency (ER) | payer SELFPAY ==
--- NOTE | 2020-03-24 22:47 | XRay Report ---
Left knee 3 views INDICATION: Left knee pain IMPRESSION: No fracture or subluxation of the left knee is identified. Small left knee effusion. Signer Name: Librado Leal MD Signed: 03/24/2020 10:43 PM Workstation Name: [id number]
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
[2020-03-25] MEDS ORDERED: oxyCODONE /ACETAMINOPHEN 5-325MG TAB PO ONE (05:07)
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
[2020-03-25 06:14] VITALS: BP 164/98
== END 2020-03-25 05:55 | disposition home or self-care (01) ==
LOC: ED 19:19
DX: M23.8X2 Other internal derangements of left knee (principal); I10 Essential (primary) hypertension; Z98.890 Other specified postprocedural states; Z79.899 Other long term (current) drug therapy

== ENCOUNTER 2021-04-22 22:23 | Emergency (ER) | payer SELFPAY | END 2021-04-23 01:31 | disposition left against medical advice (07) | LOC: ED 22:23 | DX: I10 Essential (primary) hypertension (principal); Z53.21 Procedure and treatment not carried out due to patient leaving prior to being seen by health care provider ==

== ENCOUNTER 2021-04-23 08:43 | Emergency (ER) | payer SELFPAY ==
[2021-04-23 08:51] VITALS: BP 164/94
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
== END 2021-04-23 09:30 | disposition home or self-care (01) ==
LOC: ED 08:43
DX: I10 Essential (primary) hypertension (principal); Z76.0 Encounter for issue of repeat prescription; Z79.899 Other long term (current) drug therapy; Z98.890 Other specified postprocedural states
CPT/HCPCS: 99281

== ENCOUNTER 2021-06-23 14:02 | Emergency (ER) | payer SELFPAY ==
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
[2021-06-23] MEDS ORDERED: cloNIDine 0.1 MG TAB PO ONE (15:02)
[2021-06-23 16:52] VITALS: BP 144/93
== END 2021-06-23 17:04 | disposition home or self-care (01) ==
LOC: ED 14:02
DX: I10 Essential (primary) hypertension (principal)
CPT/HCPCS: 99282

== ENCOUNTER 2021-09-20 10:18 | Emergency (ER) | payer OTHER ==
[2021-09-20 10:59] VITALS: BP 180/116
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
== END 2021-09-20 11:47 | disposition home or self-care (01) ==
LOC: ED 10:18
DX: K02.9 Dental caries, unspecified (principal); K05.10 Chronic gingivitis, plaque induced; I10 Essential (primary) hypertension
CPT/HCPCS: 99282